=== PATIENT | male | born 1985 | race Caucasian/White ===

== ENCOUNTER 2023-07-06 16:06 | Emergency (ER) | payer OTHER, SELFPAY ==
--- NOTE | 2023-07-06 16:15 | PC.NURSE ---
THIS RN WENT OUT TO GET PT TO BRING BACK TO TRIAGE ROOM TWICE AND PT STILL IN BATHROOM. ([id number])
[2023-07-06 16:22] VITALS: BP 138/107; PULSE 84; RESP 20; TEMP 36.5; O2SAT 98; BMI 26.2
--- NOTE | 2023-07-06 16:31 | CT_ITS ---
The [address] [address] Patient Name: CRISTIN JAUREGUI MRN: [id number] date: 1985 Sex: M Assigned Patient Location: ER Current Patient Location: ER Accession/Order Number: [id number] Exam Date: 07/06/2023 17:20 Report Date: 07/06/2023 18:18 At the request of: POONAM GROSS Procedure: CT abdomen pelvis wo con EXAMINATION: CT abdomen pelvis wo con, 07/06/2023 2:20 PM PST HISTORY: Kidney stone, right flank pain COMPARISON: None. TECHNIQUE: CT scan of the abdomen and pelvis was performed without IV contrast. CT dose reduction technique was used, including Automated Exposure Control. FINDINGS: Lung: No significant finding. Liver: No significant finding. Gallbladder: No significant finding. Spleen: No significant finding. Pancreas: No significant finding. Adrenal glands: No significant finding. Kidneys, ureters and bladder: 2 mm right distal ureter/UVJ calculus with mild right hydroureteronephrosis. Bladder is decompressed with circumferential wall thickening. Bowel: No evidence of bowel obstruction. Tiny hiatal hernia. Colonic diverticulosis without diverticulitis. Normal appendix. Peritoneum/retroperitoneum: No significant finding. Lymph nodes: No significant finding. Vessels: No significant finding. Body wall: No significant finding. Reproductive: No significant finding. Bones: No significant finding. CT/CT abdomen pelvis wo con IMPRESSION: 2 mm right UVJ calculus with mild right hydroureteronephrosis. Electronically authenticated by: WILFREDO CHEN Date: 07/06/2023 18:18
--- NOTE | 2023-07-06 16:35 | ED.ABDPAIN1 ---
HPI - Abdominal Pain General Chief Complaint: Abdominal Pain Stated Complaint: right side pain, unable to go to bathroom Time Seen by Provider: 07/06/23 16:28 Source: patient Mode of arrival: walk-in Limitations: no limitations History of Present Illness HPI narrative: Patient is a 38-year-old male who presents to the emergency department for right flank pain that began several hours ago. Patient states he passed a kidney stone 3 years ago similarly. He believes it was on the same side. He reports pain in the right low back radiating into the right lower quadrant of the abdomen. He has had no fevers. He reports nausea but no vomiting. No medications taken prior to arrival. He has had decreased urination since the pain began. Related Data Home Medications Medication Instructions Recorded Confirmed No Known Home Medications 07/06/23 07/06/23 Previous Rx's Medication Instructions Recorded ciprofloxacin HCl 500 mg tablet 500 mg PO BID #6 tabs 07/06/23 (Cipro) ketorolac 10 mg tablet 10 mg PO TID PRN pain #10 tabs 07/06/23 ondansetron 4 mg disintegrating 4 mg PO Q6H PRN nausea and 07/06/23 tablet vomiting #12 tabs oxycodone-acetaminophen 5 mg-325 1 tab PO Q6H PRN pain 3 days #12 07/06/23 mg tablet (Percocet) tabs tamsulosin 0.4 mg capsule (Flomax) 0.4 mg PO DAILY #7 caps 07/06/23 Allergies Allergy/AdvReac Type Severity Reaction Status Date / Time No Known Drug Allergies Allergy Verified 07/06/23 16:24 Review of Systems ROS Constitutional Denies: fever or chills Ears, nose, mouth, and throat Denies: throat pain or nasal congestion Cardiovascular Denies: chest pain Respiratory Denies: shortness of breath Gastrointestinal Reports: abdominal pain and nausea; Denies: vomiting or diarrhea Genitourinary Reports: decreased urine ouput; Denies: painful urination Musculoskeletal Reports: back pain; Denies: neck pain Integumentary/Breast Denies: rash Neurological Denies: headache Endocrine Denies: excessive urination Exam Narrative Exam Narrative: Gen.: Awake, alert, in no distress Head: Normocephalic, atraumatic ENT: Moist mucous membranes Respiratory: No respiratory distress Gastrointestinal: Abdomen is soft, nondistended and tender to palpation in the right lower quadrant around to the right flank with tenderness of the right low back Extremities: Moves extremities equally Psych: Normal mood and affect Neuro: No focal neuro deficit Skin: Warm, dry, intact Constitutional Vital Signs, click to edit/add: Last Vital Signs Temp 97.7 F 07/06/23 16:22 Pulse 71 07/06/23 18:45 Resp 18 07/06/23 18:45 BP 122/88 07/06/23 18:45 Pulse Ox 99 07/06/23 18:45 O2 Del Method Room Air 07/06/23 18:45 Course Vital Signs Vital signs: Vital Signs Temperature 97.7 F 07/06/23 16:22 Pulse Rate 84 07/06/23 16:22 Respiratory Rate 20 07/06/23 16:22 Blood Pressure 138/107 H 07/06/23 16:22 Pulse Oximetry 98 07/06/23 16:22 Temperature 97.7 F 07/06/23 16:22 Pulse Rate 71 07/06/23 18:45 Respiratory Rate 18 07/06/23 18:45 Blood Pressure 122/88 07/06/23 18:45 Pulse Oximetry 99 07/06/23 18:45 Oxygen Delivery Method Room Air 07/06/23 18:45 MDM - Abdominal Pain MDM Narrative Medical decision making narrative: Patient was medicated with IV fluids, Dilaudid, Toradol, Zofran with improvement. He is resting comfortably on reevaluation. Lab studies with normal white blood cell count and normal creatinine. Lactic acid was mildly elevated and he was given IV fluids. Urine specimen with no evidence of UTI. CT of the abdomen and pelvis shows patient has a 2 mm stone in the right distal ureter. He was remedicated with additional 2 mg of morphine as he stated his pain was starting to come back, although his abdomen is soft and benign and he has normal vital signs at discharge. He is started on a short course of Cipro, Flomax, Zofran, Toradol, Percocet. Follow-up with PCP and return to the ER if symptoms change or worsen. Medical Records Attestation: I reviewed the patient's medical records. Lab Data Attestation: I reviewed the patient's lab results. Labs: Lab Results 07/06/23 07/06/23 07/06/23 Range/Units 16:27 16:35 18:41 WBC 9.8 (4.0-11.0) 10^3/uL RBC 5.05 (4.70-6.10) 10^6/uL Hgb 15.1 (14.0-18.0) g/dL Hct 45.3 (42.0-54.0) % MCV 89.7 (80.0-94.0) fL MCH 29.9 (25.9-34.0) pg MCHC 33.3 (29.9-35.2) g/dL RDW 12.6 (11.0-15.0) % Plt Count 272 (150-450) 10^3/uL MPV 10.8 (9.5-13.5) fL Neut % (Auto) 63.6 (43.0-75.0) % Lymph % (Auto) 27.2 (20.5-60.0) % [place] % (Auto) 7.3 (1.7-12.0) % Eos % (Auto) 1.0 (0.9-7.0) % Baso % (Auto) 0.5 (0.2-2.0) % Neut # (Auto) 6.2 (1.4-6.5) 10^3/uL Lymph # (Auto) 2.7 (1.2-3.8) 10^3/uL [place] # (Auto) 0.7 (0.3-0.8) 10^3/uL Eos # (Auto) 0.1 (0.0-0.7) 10^3/uL Baso # (Auto) 0.1 (0.0-0.1) 10^3/uL Abs Immat Gran (auto) 0.04 H (0.00-0.03) 10^3/uL Imm/Tot Granulo (auto) 0.4 (0.0-0.5) % Sodium 138 (136-145) mmol/L Potassium 3.3 L (3.5-5.1) mmol/L Chloride 102 (98-107) mmol/L Carbon Dioxide 25.4 (21.0-32.0) mmol/L Anion Gap 13.9 BUN 14.0 (7.0-18.0) mg/dL Creatinine 1.09 (0.70-1.30) mg/dL Est GFR ( Amer) >60 (>=60) Est GFR (Non-Af Amer) >60 (>=60) BUN/Creatinine Ratio 12.8 Glucose 111 H (74-106) mg/dL Lactate 2.4 H* (0.4-2.0) mmol/L Calcium 10.1 (8.5-10.1) mg/dL Total Bilirubin 0.5 (0.2-1.0) mg/dL AST 27 (15-37) U/L ALT 40 (16-63) U/L Alkaline Phosphatase 107 (46-116) U/L Total Protein 8.1 (6.4-8.2) g/dL Albumin 4.2 (3.4-5.0) g/dL Globulin 3.9 g/dL Albumin/Globulin Ratio 1.1 Lipase 29.0 (16.0-77.0) U/L Urine Color Yellow (YELLOW) Urine Clarity Clear (CLEAR) Urine pH 5.5 (5.0-9.0) Ur Specific [place] >=1.030 A (1.005-1.025) Urine Protein Negative (NEG/TRACE) mg/dL Urine Glucose (UA) Negative (NEGATIVE) mg/dL Urine Ketones Trace A (NEGATIVE) mg/dL Urine Occult Blood Negative (NEGATIVE) Urine Nitrite Negative (NEGATIVE) Urine Bilirubin Negative (NEGATIVE) Urine Urobilinogen 0.2 (0.2-1.0) EU/dL Ur Leukocyte Esterase Negative (NEGATIVE) Imaging Data CT scan - abdomen: Attestation: I have reviewed the pertinent imaging results. Radiologist's impression: Procedure: CT abdomen pelvis wo [facility] EXAMINATION: CT abdomen pelvis wo [facility], 07/06/2023 2:20 PM PST HISTORY: Kidney stone, right flank pain COMPARISON: None. TECHNIQUE: CT scan of the abdomen and pelvis was performed without IV contrast. CT dose reduction technique was used, including Automated Exposure Control. FINDINGS: Lung: No significant finding. Liver: No significant finding. Gallbladder: No significant finding. Spleen: No significant finding. Pancreas: No significant finding. Adrenal glands: No significant finding. Kidneys, ureters and bladder: 2 mm right distal ureter/UVJ calculus with mild right hydroureteronephrosis. Bladder is decompressed with circumferential wall thickening. Bowel: No evidence of bowel obstruction. Tiny hiatal hernia. Colonic diverticulosis without diverticulitis. Normal appendix. Peritoneum/retroperitoneum: No significant finding. Lymph nodes: No significant finding. Vessels: No significant finding. Body wall: No significant finding. Reproductive: No significant finding. Bones: No significant finding. IMPRESSION: 2 mm right UVJ calculus with mild right hydroureteronephrosis. Electronically authenticated by: WILFREDO CHEN Date: 07/06/2023 18:18 Discharge Plan Discharge Chief Complaint: Abdominal Pain Clinical Impression: Right distal ureteral calculus, Abdominal pain Patient Disposition: Home, Self-Care Time of Disposition Decision: 19:31 Condition: Good Prescriptions / Home Meds: New ciprofloxacin HCl [Cipro] 500 mg tablet 500 mg PO BID Qty: 6 0RF tamsulosin [Flomax] 0.4 mg capsule 0.4 mg PO DAILY Qty: 7 0RF ketorolac 10 mg tablet 10 mg PO TID PRN (Reason: pain) Qty: 10 0RF ondansetron 4 mg tablet,disintegrating 4 mg PO Q6H PRN (Reason: nausea and vomiting) Qty: 12 0RF oxycodone-acetaminophen [Percocet] 5-325 mg tablet 1 tab PO Q6H PRN (Reason: pain) 3 Days Qty: 12 0RF Rx Instructions: DX: N20.0 No Action No Known Home Medications Instructions: Acute Abdominal Pain (ED), Ureteral Stones (ED) Stand Alone Forms: Portal Instructions Referrals: Wally Barr MD [Primary Care Provider] - 1 week
[2023-07-06] MEDS: 0.9 % SODIUM CHLORIDE 1,000 ML 999 ML IV (16:39)
[2023-07-06] MEDS: HYDROMORPHONE HCL 1 MG/ML CARTRIDGE IVP (16:39)
[2023-07-06] MEDS: ONDANSETRON PF 4 MG/2 ML VIAL IV (16:39)
[2023-07-06] MEDS: KETOROLAC TROMETHAMINE 30 MG/ML VIAL IVP (16:39)
[2023-07-06 16:46] LABS: Basophils Absolute Auto 0.1 10^3/uL (0.0-0.1); Basophils Percent Auto 0.5 % (0.2-2.0); Eosinophils Absolute Auto 0.1 10^3/uL (0.0-0.7); Hematocrit 45.3 % (42.0-54.0); Hemoglobin 15.1 g/dL (14.0-18.0); Immature Granulocytes Abs Auto 0.04 10^3/uL (0.00-0.03); Immature Granulocytes Pct Auto 0.4 % (0.0-0.5); Lymphocytes Absolute Auto 2.7 10^3/uL (1.2-3.8); Lymphocytes Percent Auto 27.2 % (20.5-60.0); Mean Corpuscular HGB Conc 33.3 g/dL (29.9-35.2); Mean Corpuscular Hemoglobin 29.9 pg (25.9-34.0); Mean Corpuscular Volume 89.7 fL (80.0-94.0); Mean Platelet Volume 10.8 fL (9.5-13.5); Monocytes Absolute Auto 0.7 10^3/uL (0.3-0.8); Monocytes Percent Auto 7.3 % (1.7-12.0); Neutrophils Absolute Auto 6.2 10^3/uL (1.4-6.5); Neutrophils Percent Auto 63.6 % (43.0-75.0); Platelet Count 272 10^3/uL (150-450); Red Blood Count 5.05 10^6/uL (4.70-6.10); Red Cell Distribution Width 12.6 % (11.0-15.0); White Blood Count 9.8 10^3/uL (4.0-11.0)
[2023-07-06 16:47] VITALS: O2SAT 97
[2023-07-06 17:00] LABS: Alanine Aminotransferase 40 U/L (16-63); Albumin Globulin Ratio 1.1; Albumin Level 4.2 g/dL (3.4-5.0); Alkaline Phosphatase 107 U/L (46-116); Anion Gap 13.9; Aspartate Amino Transferase 27 U/L (15-37); BUN Creatinine Ratio 12.8; Bilirubin Total 0.5 mg/dL (0.2-1.0); Calcium 10.1 mg/dL (8.5-10.1); Carbon Dioxide 25.4 mmol/L (21.0-32.0); Chloride 102 mmol/L (98-107); Estimated GFR (African America >60 (>=60); Estimated GFR (Non-African Ame >60 (>=60); Globulin 3.9 g/dL; Glucose 111 mg/dL (74-106); Potassium 3.3 mmol/L (3.5-5.1); Sodium 138 mmol/L (136-145); Total Protein 8.1 g/dL (6.4-8.2)
[2023-07-06 17:05] LABS: Lactate/Lactic Acid 2.4 mmol/L (0.4-2.0)
[2023-07-06 17:16] VITALS: BP 150/88; PULSE 71; RESP 18; O2SAT 98
[2023-07-06 18:45] VITALS: BP 122/88; PULSE 71; RESP 18; O2SAT 99
[2023-07-06 19:19] LABS: Bilirubin Urine NEGATIVE (NEGATIVE); Blood Urine NEGATIVE (NEGATIVE); Clarity Urine CLEAR (CLEAR); Color Urine YELLOW (YELLOW); Glucose Urine UA NEGATIVE (NEGATIVE); Ketones Urine TRACE mg/dL (NEGATIVE); Leukocyte Esterase Urine NEGATIVE (NEGATIVE); Nitrite Urine NEGATIVE (NEGATIVE); Protein Urine NEGATIVE (NEG/TRACE); Specific Gravity Urine >=1.030 (1.005-1.025); Urobilinogen Urine 0.2 EU/dL (0.2-1.0); pH Urine 5.5 (5.0-9.0)
[2023-07-06 19:23] LABS: Urine Microscopic Indicated NO
[2023-07-06] MEDS: TAMSULOSIN HCL 0.4 MG CAPSULE PO (19:32)
[2023-07-06] MEDS: CIPROFLOXACIN HCL 500 MG TABLET PO (19:32)
[2023-07-06] MEDS: MORPHINE SULFATE 2 MG/ML SYRINGE IV (19:32)
[2023-07-06 19:35] VITALS: BP 143/97; PULSE 77; O2SAT 98
[2023-07-06] MEDS: ONDANSETRON 4 MG RAPDIS TABLET SL (20:11)
[2023-07-06] MEDS: OXYCODONE HCL/ACETAMINOPHEN 5MG/325MG 2 TAB PO (20:11)
[2023-07-06 20:12] VITALS: BP 131/84; PULSE 79; O2SAT 96
== END 2023-07-06 20:17 | disposition home or self-care (01) ==
PROVIDERS: Physician Assistant; Emergency Provider Emergency Medicine; PCP Family Medicine
DX: N13.2 Hydronephrosis with renal and ureteral calculous obstruction (principal); Z87.442 Personal history of urinary calculi; R10.9 Unspecified abdominal pain
CPT/HCPCS: 36415; 74176; 80053; 81003; 83605; 83690; 85025; 96374; 96375; 99285; J1170

== ENCOUNTER 2024-03-19 18:49 | Emergency (ER) | payer OTHER, SELFPAY ==
[2024-03-19 18:56] VITALS: BP 151/97; PULSE 84; TEMP 37.1; O2SAT 97; BMI 26.2
--- OUTSIDE RECORDS SUMMARY | 2024-03-19 18:57 | XMS_ITS | CCD ---
Author Organization 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 Name Role Phone DR MIKE DICKERSON Primary Care Unavailable DR KIM SPENCER Consulting Unavailable SHAIKH Nic VENCES Attending Unavailable SHAIKH Nic VENCES Admitting Unavailable SHAIKH Nic VENCES Consulting Unavailable Twan Jeffers Unavailable MD Twan Jeffers Attending Provider MD Mike Dickerson Primary Care Provider [phone] Twan Jeffers Admitting Unavailable Twan Jeffers Attending Unavailable Mike Dickerson Primary Care Unavailable Medications Current Medications Medication Drug Class(es) Dates Sig (Normalized) Sig (Original) acetaminophen 325 mg / oxyCODONE hydrochloride 5 mg oral tablet (4 sources) Opioid Agonist Start: 10-03-2022 take 1 tablet by mouth three times daily Oxycodone-Acetami nophen Active 1 TAB PO Three times daily October 03, 2022 12:00am Percocet Active baclofen 10 mg oral tablet (4 sources) gamma-Aminobutyric Acid-ergic Agonist Start: 10-03-2022 take 10 mg by mouth three times daily Baclofen Active 10 MG PO Three times daily October 03, 2022 12:00am Baclofen Active ibuprofen 200 mg oral capsule (4 sources) Nonsteroidal Anti-inflammatory Drug Start: 04-06-2019 take 1 tablet by mouth three times daily Ibuprofen Active 1 TAB PO Three times daily April 06, 2019 12:00am take 1 tablet by nikko th three times daily at mealtime as needed Ibuprofen 200 MG 1 tablet with food or milk as needed Orally Three times a day Not-Taking Problems Problem Classification Problem Date Documented Date Episodic/Chronic Other nervous system disorders (3 sources) Chronic pain; Translations: [Other chronic pain] Chronic Other nervous system disorders (3 sources) Other chronic pain Chronic Other nervous system disorders (1 source) Other chronic pain; Translations: [Other chronic pain] Onset: 10-03-2022 Chronic Spondylosis; intervertebral disc disorders; other back problems (19 sources) Other intervertebral disc degeneration, lumbosacral region; Translations: [Other intervertebral disc degeneration, lumbar region] Onset: 09-14-2022 Chronic Spondylosis; intervertebral disc disorders; other back problems (12 sources) Other specified dorsopathies, lumbar region; Translations: [Spinal stenosis, lumbosacral region] Onset: 09-11-2022 Episodic Results Test Name Value Interpretation Reference Range Facil ity MRI LSPINE WO CONon 09-13-19 MRI LSPINE WO CON EXAMINATION: MRI LSPINE WO CON HISTORY: Disorder of lumbar spine ; acute lumbar and right leg pain COMPARISON: MRI L-spine 01/02/2019 TECHNIQUE: A variety of imaging planes and parameters were utilized for visualization of suspected pathology. FINDINGS: For the purposes of numbering, sagittal T2 image # 8 extends from the T11 vertebral body superiorly to the S3 level inferiorly. PARASPINAL AREA: Normal with no visible mass. BONES: No fracture, pars defect, or osseous lesion. CORD/CAUDA EQUINA: Normal caliber, contour, and signal intensity. DISC LEVELS: 12-L1: No significant disc/facet abnormality, spinal stenosis, or foraminal stenosis. L1-L2: No significant disc/facet abnormality, spinal stenosis, or foraminal stenosis. L2-L3: No significant disc/facet abnormality, spinal stenosis, or foraminal stenosis. L3-L4: No significant disc/facet abnormality, spinal stenosis, or foraminal stenosis. L4-L5: Moderate central canal and mild bilateral foramen narrowing. Mild diffuse disc bulging with small posterior central protrusion and annular tear. No disc height reduction. No significant degenerative facet arthropathy. L5-S1: Moderate central canal and right foramen narrowing. Moderate diffuse disc bulging with posterior central small protrusion with annular tear. No disc height reduction. Suspect impingement of the descending S1 nerve roots bilaterally. Mild degenerative facet arthropathy bilaterally. IMPRESSION: 1. L4-L5 and L5-S1 degenerative disc disease resulting in moderate central canal at both levels and moderate right foramen narrowing at L5-S1. Electronically authenticated by: KIM SPENCER Date: 2022-09-12 08:53 Normal [facility] XR FOREIGN BODY EYEon 2022 XR FOREIGN BODY EYE EXAMINATION: XR FOREIGN BODY EYE HISTORY: Foreign body in eye COMPARISON: No relevant comparison available. FINDINGS: ORBITS: Negative for a metallic foreign body. OTHER: Negative. IMPRESSION: 1. No metallic foreign body within the orbits. Electronically authenticated by: KIM SPENCER Date: 2022-09-11 13:38 Normal [facility] Vital Signs Date Time Vital Sign Value Performing Clinician Facility 10-15-2022 17:30-0400 Body height 170.18 cm Twan Jeffers Other [email or web address] Other 10-15-2022 17:30-0400 Body mass index (BMI) [Ratio] 26.81 kg/m2 Twan Kwonky Other [email or web address] Other 10-15-2022 17:30-0400 Body weight 77.66 kg Twan Kwonky Other [email or web address] Other 10-15-2022 17:30-0400 Diastolic blood pressure 70 mm[Hg] Twan Aury Other [email or web address] Other 10-15-2022 17:30-0400 SaO2% (BldA) [Mass fraction] 98 % Twan Kwonky Other [email or web address] Other 10-15-2022 17:30-0400 Systolic blood pressure 130 mm[Hg] Twan Aury Other [email or web address] Other 10-03-2022 11:30-0400 Diastolic blood pressure 86 mm[Hg] MD Mike Dickerson Work Phone: [facility] 10-03-2022 11:30-0400 Heart rate 65 /min MD Mike Dickerson Work Phone: [facility] 10-03-2022 11:30-0400 Respiratory rate 16 /min MD Mike Dickerson Work Phone: [facility] 10-03-2022 11:30-0400 SaO2% (BldA) [Mass fraction] 96 % MD Mike Dickerson Work Phone: [facility] 10-03-2022 11:30-0400 Systolic blood pressure 116 mm[Hg] MD Mike Dickerson Work Phone: [facility] 10-03-2022 10:53-0400 Inhaled oxygen flow rate 3 L/min MD Mike Dickerson Work Phone: [facility] 10-03-2022 09:48-0400 Body height 170.18 cm MD Mike Dickerson Work Phone: [facility] 10-03-2022 09:48-0400 Body weight 78.01 kg MD Mike Dickerson Work Phone: [facility] 09-19-2022 17:15-0400 Body height 170.18 cm Twan Jeffers Other [email or web address] Other 09-19-2022 17:15-0400 Body mass index (BMI) [Ratio] 26.97 kg/m2 Twan Jeffers Other [email or web address] Other 09-19-2022 17:15-0400 Body weight 78.11 kg Twan Jeffers Other [email or web address] Other 09-19-2022 17:15-0400 Diastolic blood pressure 82 mm[Hg] Twan Jeffers Other [email or web address] Other 09-19-2022 17:15-0400 SaO2% (BldA) [Mass fraction] 98 % Twan Jeffers Other [email or web address] Other 09-19-2022 17:15-0400 Systolic blood pressure 134 mm[Hg] Twan Jeffers Other [email or web address] Other 09-10-2022 15:45-0500 Body height 170.18 cm Twan Jeffers Other [email or web address] Other 09-10-2022 15:45-0500 Body mass index (BMI) [Ratio] 26.43 kg/m2 Twan Jeffers Other [email or web address] Other 09-10-2022 15:45-0500 Body weight 76.57 kg Twan Jeffers Other [facility] Other 09-10-2022 15:45-0500 Diastolic blood pressure 84 mm[Hg] Twan Jeffers Other [email or web address] Other 09-10-2022 15:45-0500 SaO2% (BldA) [Mass fraction] 99 % Twan Jeffers Other [email or web address] Other 09-10-2022 15:45-0500 Systolic blood pressure 122 mm[Hg] Twan Jeffers Other [email or web address] Other Encounters Encounter Date Encounter Type Care Provider Facility Start: 10-15-2022 End: 10-15-2022 ambulatory Twan Jeffers Other [email or web address] Other Start: 10-15-2022 Office outpatient vi sit 15 minutes Twan Jeffers [facility] Start: 10-03-2022 End: 10-03-2022 ambulatory Twan Ady Jeffers Facility:[facility] Start: 10-03-2022 End: 10-03-2022 Admission to same day surgery center MD Mike Dickerson Work Phone: [facility] Work Phone: Start: 10-03-2022 End: 10-03-2022 ambulatory MD Mike Dickerson Work Phone: [facility] Work Phone: Start: 09-19-2022 End: 09-19-2022 ambulatory Twan Aury Other [email or web address] Other Start: 09-19-2022 Office outpatient vi sit 25 minutes Twan Aury [facility] Start: 09-11-2022 End: 09-12-[address] MIKE DICKERSON Facility:[facility] Start: 09-10-2022 End: 09-10-2022 ambulatory Wtan Aury Other [email or web address] Other Start: 09-10-2022 Office outpatient vi sit 25 minutes Twan Aury [facility] Procedures Date Procedure Procedure Detail Performing Clinician Start: 10-03-2022 Injection of spinal epidural space MD Mike Dickerson Work Phone: Plan of Treatment Date Care Activity Detail Author Start: 10-03-2022 [facility] Patient Education Aury Non Diagnostic Blo ck [facility] Work Phone: Patient referral [facility] Work Phone: Payers Date Payer Category Payer Self-pay [id number] 1985 Unknown [id number] 1959 Unknown [id number] Unknown [id number] Social History Date Type Detail Facility Unknown if ever smoked [email or web address] Other Sex Assigned At Sex Assigned At Bir th [email or web address] Other Start: 10-03-2022 Tobacco smoking status NHIS Never smoked tobacco (finding) [facility] Start: 1985 Sex Assigned At Male [facility] Goals Date Patient Goal Desired Activity /State Evaluation note 10-15-2022 Note Date & Type Note Facility 10-15-2022 Evaluation note Encounter Date Diagnosis Assessment Notes Oct, Lumbar radiculopathy (ICD-10 - M54.16) 37 year old male here for follow up status post right L4 and L5 transforaminal epidural steroid injection under fluoroscopic guidance. Patient reports 80-90% relief of his right lower extremity pain following the procedure. He continues to complain of intermittent low back pain, denying radicular symptoms. Overall, he appears to be doing well. I recommend he increase his activities as tolerated. He is counseled against any excessive bending, lifting or twisting. He is advised to call the office if his pain returns. Oct, Lumbar degenerative disc disease (ICD-10 - M51.36) Continue with current treatment plan Oct, Sacroiliitis (ICD-10 - M46.1) If the pain persists, we can consider proceeding with a sacroiliac joint injection under fluoroscopic guidance in the future, if applicable Oct, Chronic pain (ICD-10 - G89.29) Follow up as needed. [email or web address] Other Procedure note 10-03-2022 Note Date & Type Note Facility 10-03-2022 Procedure note [facility] Evaluation note 09-19-2022 Note Date & Type Note Facility 09-19-2022 Evaluation note Encounter Date Diagnosis Assessment Notes Sep, Lumbar radiculopathy (ICD-10 - M54.16) 37 year old male here for follow up to discuss chronic pain. He voices complaints of low back pain with intermittent radiation down the posterior aspect of the right lower extremity to the foot. He notes on occasion pain can radiate down left lower extremity. He feels pain is negatively impacting his daily activities. I independently reviewed recent imaging of the lumbar spine which shows multilevel disc bulges with foraminal narrowing. Anatomy of spine discussed in detail with patient in regards to patients condition. Patient is a candidate for a right L4,5 transforaminal epidural steroid injection under fluoroscopic guidance. Risks and benefits of procedure explained to patient; patient verbalizes understanding. Sep, Lumbar degenerative disc disease (ICD-10 - M51.36) Continue with current treatment plan Sep, Sacroiliitis (ICD-10 - M46.1) In the future if the pain persists, we can consider proceeding with a sacroiliac joint injection under fluoroscopic guidance. Sep, Chronic pain (ICD-10 - G89.29) Follow up after procedure [email or web address] Other Evaluation note 09-10-2022 Note Date & Type Note Facility 09-10-2022 Evaluation note Encounter Date Diagnosis Assessment Notes Sep, Lumbar radiculopathy (ICD-10 - M54.16) 37 y/o male here for follow up. He was last seen over 2 years ago. He voices complaints of low back pain with radiation down posterior aspect of the right lower extremity to the heel. He states his pain started 6 days ago. Anatomy of spine as well as different treatment options were discussed in detail with patient in regards to patients condition. I would like to review updated imaging prior to scheduling a procedure as he states he is scheduled for an MRI tomorrow. If his pain persists or worsens, we can consider repeating the transforaminal epidural steroid injection as this previously provided him with significant relief in the past. Sep, Lumbar degenerative disc disease (ICD-10 - M51.36) Proceed with updated imaging of the lumbar spine. Sep, Chronic pain (ICD-10 - G89.29) Consider interventional options after MRI [email or web address] Other Evaluation note Note Date & Type Note Facility Evaluation note No assessment information availa [facility] Work Phone: Summary Purpose Family History Relationship Condition Age at Onset Recorded Date/T warner grandparent Status post three ve ssel coronary artery bypass Unknown Not Specified Chronic obstructive pulmonary disease Un known Advance Directives Advance Directive Response Recorded Date/ Time Advance Directives No March 4:43pm Chief Complaint and Reason for Visit Chief Complaint pain Additional Source Comments (unrecognized sect ion and content) No Status Records FoundNo Status Records Found INFORMATION SOURCE (unrecogn ized section and content) DATE CREATED AUTHOR 09/15/2022 [facility] DATE CREATED AUTHOR AUTHOR'S ORGANIZ ATION 10/11/2022 [facility] REASON FOR VISIT (unrecogniz ed section and content) (LAST SEEN 2019) INCREASE BA CK PAINREVIEW IMAGINGFOLLOW UP AFTER RIGHT LTR Care Teams (unrecognized sec tion and content) Team Status: Active Member Role Status Dates Mike Dickerson MD Primary Care Provider Active Team Status: Inactive Member Role Status Dates Twan Jeffers MD Attending Provider Active Mike Dickerson MD Primary Care Provider Active FOR RECORDS PERTAINING TO PATIENTS WHO ARE OR HAVE BEEN ENROLLED IN A CHEMICAL DEPENDENCY/SUBSTANCEABUSE PROGRAM, SOME INFORMATION MAY BE OMITTED. This clinical summary was aggregated from multiple sources. Caution should be exercised in using it in the provision of clinical care. This summary normalizes information from multiple sources, and as a consequence, information in this document may materially change the coding, format and clinical context of patient data. In addition, data may be omitted in some cases. CLINICAL DECISIONS SHOULD BE BASED ON THE PRIMARY CLINICAL RECORDS. [facility] [employer] provides no warranty or guarantee of the accuracy or completeness of information in this document.
--- NOTE | 2024-03-19 19:03 | ECG_ITS ---
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
--- NOTE | 2024-03-19 19:04 | CT_ITS ---
The [address] [address] Patient Name: CRISTIN JAUREGUI MRN: [id number] date: 1985 Sex: M Assigned Patient Location: ER Current Patient Location: ED.MAIN Accession/Order Number: [id number] Exam Date: 03/19/2024 19:15 Report Date: 03/19/2024 19:31 At the request of: BLANCHE JONES Procedure: CT head/brain wo con EXAMINATION: CT head/brain wo con HISTORY: right uppwer extremity weakness right arm numbness and tingling. COMPARISON: None. TECHNIQUE: Axial CT images through the head without contrast. Dose reduction techniques were achieved by using: automated exposure control and/or adjustment of mA and /or kV according to patient size and/or use of iterative reconstruction technique. FINDINGS: The ventricles and sulci are within normal limits in size and configuration for age. There is no evidence for acute intracranial hemorrhage. There are no foci of abnormal parenchymal attenuation. There is no mass effect or midline shift. There are no abnormal extraaxial fluid collections. IMPRESSION: Negative for acute intracranial hemorrhage or acute intracranial process. Electronically authenticated by: JOSH ROMAN Date: 03/19/2024 19:31
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
[2024-03-19 19:13] VITALS: BP 140/87; PULSE 88; O2SAT 97
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
== END 2024-03-19 20:00 | disposition home or self-care (01) ==
PROVIDERS: Emergency Provider Emergency Medicine; PCP Family Medicine
DX: R20.2 Paresthesia of skin (principal)
CPT/HCPCS: 70450; 93005; 99284

== ENCOUNTER 2024-04-28 18:20 | Emergency (ER) | payer OTHER, SELFPAY ==
[2024-04-28 18:23] VITALS: BP 167/100; PULSE 78; TEMP 36.9; O2SAT 98; BMI 26.6
--- OUTSIDE RECORDS SUMMARY | 2024-04-28 18:30 | XMS_ITS | CCD ---
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 Name Role Phone DR MIKE DICKERSON Primary Care Unavailable DR KIM SPENCER Consulting Unavailable SHAIKH Nic VENCES Attending Unavailable SHAIKH Nic VENCES Admitting Unavailable SHAIKH Nic VENCES Consulting Unavailable Twan Jeffers Unavailable MD Twan Jeffers Attending Provider [phone] MD Mike Dickerson Primary Care Provider Twan Jeffers Admitting Unavailable Twan Jeffers Attending [...] by: KIM SPENCER Date: 2022-09-12 08:53 Normal [facility] XR FOREIGN BODY EYEon 2022 XR FOREIGN BODY EYE EXAMINATION: XR FOREIGN BODY EYE HISTORY: Foreign body in eye COMPARISON: No relevant comparison available. FINDINGS: ORBITS: Negative for a metallic foreign body. OTHER: Negative. IMPRESSION: 1. No metallic foreign body within the orbits. Electronically authenticated by: KIM SPENCER Date: 2022-09-11 13:38 Normal [facility] Vital Signs Date Time Vital Sign Value Performing Clinician Facility 10-15-2022 17:30-0400 Body height 170.18 cm Twan Jeffers Other [facility] Other 10-15-2022 17:30-0400 Body mass index (BMI) [Ratio] 26.81 kg/m2 Twan Kwonky Other [facility] Other 10-15-2022 17:30-0400 Body weight 77.66 kg Twan Kwonky Other [facility] Other 10-15-2022 17:30-0400 Diastolic blood pressure 70 mm[Hg] Twan Aury Other [facility] Other 10-15-2022 17:30-0400 SaO2% (BldA) [Mass fraction] 98 % Twan Kwonky Other [facility] Other 10-15-2022 17:30-0400 Systolic blood pressure 130 mm[Hg] Twan Aury Other [facility] Other 10-03-2022 11:30-0400 Diastolic blood pressure 86 mm[Hg] MD Mike Dickerson Work Phone: [facility] 10-03-2022 11:30-0400 Heart rate 65 /min MD Mike Dickerson Work Phone: [facility] 10-03-2022 11:30-0400 Respiratory rate 16 /min MD Mike Dickerson Work Phone: [facility] 10-03-2022 11:30-0400 SaO2% (BldA) [Mass fraction] 96 % MD Mike Dickerson Work Phone: [facility] 10-03-2022 11:30-0400 Systolic blood pressure 116 mm[Hg] MD Mike Dickerson Work Phone: [facility] 10-03-2022 10:53-0400 Inhaled oxygen flow rate 3 L/min MD Mike Dickerson Work Phone: [facility] 10-03-2022 09:48-0400 Body height 170.18 cm MD Mike Dickerson Work Phone: [facility] 10-03-2022 09:48-0400 Body weight 78.01 kg MD Mike Dickerson Work Phone: [facility] 09-19-2022 17:15-0400 Body height 170.18 cm Twan Jeffers Other [facility] Other 09-19-2022 17:15-0400 Body mass index (BMI) [Ratio] 26.97 kg/m2 Twan Jeffers Other [facility] Other 09-19-2022 17:15-0400 Body weight 78.11 kg Twan Jeffers Other [facility] Other 09-19-2022 17:15-0400 Diastolic blood pressure 82 mm[Hg] Twan Jeffers Other [facility] Other 09-19-2022 17:15-0400 SaO2% (BldA) [Mass fraction] 98 % Twan Jeffers Other [facility] Other 09-19-2022 17:15-0400 Systolic blood pressure 134 mm[Hg] Twan Jeffers Other [facility] Other 09-10-2022 15:45-0500 Body height 170.18 cm Twan Jeffers Other [facility] Other 09-10-2022 15:45-0500 Body mass index (BMI) [Ratio] 26.43 kg/m2 Twan Jeffers Other [facility] Other 09-10-2022 15:45-0500 Body weight 76.57 kg Twan Jeffers Other [facility] Other 09-10-2022 15:45-0500 Diastolic blood pressure 84 mm[Hg] Twan Jeffers Other [facility] Other 09-10-2022 15:45-0500 SaO2% (BldA) [Mass fraction] 99 % Twan Jeffers Other [facility] Other 09-10-2022 15:45-0500 Systolic blood pressure 122 mm[Hg] Twan Jeffers Other [facility] Other Encounters Encounter Date Encounter Type Care Provider Facility Start: 10-15-2022 End: 10-15-2022 ambulatory Twan Jeffers Other [facility] Other Start: 10-15-2022 Office outpatient vi sit 15 minutes Twan Jeffers [facility] Start: 10-03-2022 End: 10-03-2022 ambulatory Twan Ady Jeffers Facility:[facility] Start: 10-03-2022 End: 10-03-2022 Admission to same day surgery center MD Mike Dickerson Work Phone: [facility] Work Phone: Start: 10-03-2022 End: 10-03-2022 ambulatory MD Mike Dickerson Work Phone: [facility] Work Phone: Start: 09-19-2022 End: 09-19-2022 ambulatory Twan Aury Other [facility] Other Start: 09-19-2022 Office outpatient vi sit 25 minutes Twan Aury [facility] Start: 09-11-2022 End: 09-12-[address] MIKE DICKERSON Facility:[facility] Start: 09-10-2022 End: 09-10-2022 ambulatory Twan Aury Other [facility] Other Start: 09-10-2022 Office outpatient vi sit 25 minutes Twan Aury [facility] Procedures Date Procedure Procedure Detail Performing Clinician Start: 10-03-2022 Injection of spinal epidural space MD Mike Dickerson Work Phone: Plan of Treatment Date Care Activity Detail Author Start: 10-03-2022 [facility] Patient Education Aury Non Diagnostic Blo ck [facility] Work Phone: Patient referral [facility] Work Phone: Payers Date Payer Category Payer Self-pay [id number] 1985 Unknown [id number] 1959 Unknown [id number] Unknown [id number] Social History Date Type Detail Facility Unknown if ever smoked [facility] Other Sex Assigned At Sex Assigned At Bir th [facility] Other Start: 10-03-2022 Tobacco smoking status NHIS Never smoked tobacco (finding) [facility] Start: 1985 Sex Assigned At Male F [facility] Goals Date Patient Goal Desired Activity [...] (ICD-10 - G89.29) Follow up as needed. [facility] Other Procedure note 10-03-2022 Note Date & Type Note Facility 10-03-2022 Procedure note [facility] Evaluation note 09-19-2022 Note Date & Type [...] (ICD-10 - G89.29) Follow up after procedure [facility] Other Evaluation note 09-10-2022 Note Date & [...] - G89.29) Consider interventional options after MRI [facility] Other Evaluation note Note Date & Type Note Facility Evaluation note No assessment information availa [facility] Work Phone: Summary Purpose Family [...] and content) DATE CREATED AUTHOR 09/15/2022 [facility] DATE CREATED AUTHOR AUTHOR'S ORGANIZ ATION 10/11/[address] [facility] REASON FOR VISIT (unrecogniz ed section [...] BE BASED ON THE PRIMARY CLINICAL RECORDS. [facility] [employer] provides no warranty or guarantee of the accuracy or completeness of information in this document.
--- NOTE | 2024-04-28 18:41 | ED_ITS ---
HPI HPI - General Adult General Chief complaint: Neck Pain/Injury Stated complaint: NECK PAIN Time Seen by Provider: 04/28/24 18:36 Source: patient Mode of arrival: walk-in Limitations: no limitations History of Present Illness HPI narrative: Patient is a 39-year-old male who presents to the emergency department for evaluation of feeling of a lump in his throat for the last week. He is able to eat and drink without difficulty. He states when he lays flat he gags and has a sensation that there is something in his throat. He went to urgent care just prior to arrival and was referred to the ER because the provider at urgent care felt something abnormal in the anterior neck and wanted the patient to have imaging done. They tested him for strep and it was negative. He has had no fevers. He reports mild congestion from the sinuses. No other vomiting or diarrhea. Related Data Previous Rx's ?Medication ?Instructions ?Recorded amoxicillin 875 mg-potassium 1 tab PO Q12H #20 tabs 04/28/24 clavulanate 125 mg tablet Allergies Allergy/AdvReac Type Severity Reaction Status Date / Time No Known Drug Allergies Allergy Verified 03/19/24 18:54 Opioid HPI Opioid Management Most Recent Opioid Data: Last Pain Scale 4 07/06/23 19:32 07/06/23 Review of Systems ROS Constitutional Denies: fever or chills Ears, nose, mouth, and throat Reports: throat pain; Denies: throat swelling, difficulty swallowing or hoarseness Cardiovascular Denies: chest pain Respiratory Denies: shortness of breath Gastrointestinal Denies: nausea or vomiting Integumentary/Breast Denies: rash or itching Neurological Denies: numbness in extremities or weakness in extremities Hematologic/Lymphatic Denies: easy bruising or easy bleeding PFSH PFSH Social History Little interest or pleasure in doing things: not at all Feeling down, depressed, or hopeless: not at all Exam Narrative Exam Narrative: Gen.: Awake, alert, in no distress Head: Normocephalic, atraumatic ENT: Moist mucous membranes, no palpable deformity or masses of the neck, no palpable lymphadenopathy. Uvula is midline with airway widely open and patent. No trismus or drooling. Clear speech. Bilateral TMs clear Respiratory: No respiratory distress Extremities: Moves extremities equally, no injuries noted Psych: Normal mood and affect Neuro: No focal neuro deficit Skin: Warm, dry, intact Constitutional Vital Signs, click to edit/add: Last Vital Signs Temp 98.4 F 04/28/24 18:23 Pulse 66 04/28/24 19:06 Resp 17 04/28/24 19:06 BP 136/94 H 04/28/24 19:06 Pulse Ox 98 04/28/24 19:06 O2 Del Method Room Air 04/28/24 18:23 Course Vital Signs Vital signs: Vital Signs Temperature 98.4 F 04/28/24 18:23 Pulse Rate 78 04/28/24 18:23 Respiratory Rate 18 04/28/24 18:23 Blood Pressure 167/100 H 04/28/24 18:23 Pulse Oximetry 98 04/28/24 18:23 Oxygen Delivery Method Room Air 04/28/24 18:23 Temperature 98.4 F 04/28/24 18:23 Pulse Rate 66 04/28/24 19:06 Respiratory Rate 17 04/28/24 19:06 Blood Pressure 136/94 H 04/28/24 19:06 Pulse Oximetry 98 04/28/24 19:06 Oxygen Delivery Method Room Air 04/28/24 18:23 Medical Decision Making MDM Narrative Medical decision making narrative: Patient is hemodynamically stable, no difficulty with swallowing or tolerating his own secretions and vital signs are stable. Labs are unremarkable and he was sent for CT of the soft tissue of the neck. This CT is unremarkable in terms of the patient's airway and throat, there is evidence of severe dental disease and multiple periapical abscesses which will be treated with Augmentin for home. He was instructed to follow-up with a dentist. Decadron given in the ER for throat sensation and return to the ER if symptoms change or worsen. Reevaluated by PCP. SHARED APC VISIT, PHYSICIAN ATTESTATION: [id number] I performed a substantive part of the MDM during the patient?s E/M visit. I personally evaluated and examined the patient. I personally made or approved the documented management plan and acknowledge its risk of complications. Medical Records Medical records reviewed: Yes I reviewed the patient's medical records Lab Data Lab results reviewed: Yes I reviewed the patient's lab results Labs: Lab Results 04/28/24 Range/Units 18:50 WBC 9.1 (4.0-11.0) 10^3/uL RBC 4.71 (4.70-6.10) 10^6/uL Hgb 14.0 (14.0-18.0) g/dL Hct 41.4 L (42.0-54.0) % MCV 87.9 (80.0-94.0) fL MCH 29.7 (25.9-34.0) pg MCHC 33.8 (29.9-35.2) g/dL RDW 11.9 (11.0-15.0) % Plt Count 274 (150-450) 10^3/uL MPV 10.7 (9.5-13.5) fL Neut % (Auto) 67.2 (43.0-75.0) % Lymph % (Auto) 20.1 L (20.5-60.0) % [place] % (Auto) 7.8 (1.7-12.0) % Eos % (Auto) 4.0 (0.9-7.0) % Baso % (Auto) 0.5 (0.2-2.0) % Neut # (Auto) 6.1 (1.4-6.5) 10^3/uL Lymph # (Auto) 1.8 (1.2-3.8) 10^3/uL [place] # (Auto) 0.7 (0.3-0.8) 10^3/uL Eos # (Auto) 0.4 (0.0-0.7) 10^3/uL Baso # (Auto) 0.1 (0.0-0.1) 10^3/uL Abs Immat Gran (auto) 0.04 H (0.00-0.03) 10^3/uL Imm/Tot Granulo (auto) 0.4 (0.0-0.5) % Sodium 141 (136-145) mmol/L Potassium 3.9 (3.5-5.1) mmol/L Chloride 103 (98-107) mmol/L Carbon Dioxide 27.8 (21.0-32.0) mmol/L Anion Gap 14.1 BUN 21.0 H (7.0-18.0) mg/dL Creatinine 1.19 (0.70-1.30) mg/dL Est GFR ( Amer) >60 (>=60 mL/min/1.73m^2) Est GFR (Non-Af Amer) >60 (>=60 mL/min/1.73m^2) BUN/Creatinine Ratio 17.6 Glucose 108 H (74-106) mg/dL Calcium 9.4 (8.5-10.1) mg/dL Imaging Data CT neck: Attestation: I have reviewed the pertinent imaging results. Radiologist's impression: ITS Impressions Soft Tissue Neck CT 04/28/24 19:17 IMPRESSION: No abnormal soft tissue mass in the neck. Severe dental disease throughout with several periapical abscesses. Electronically authenticated by: ENOC HANSEN Date: 04/28/2024 20:37 Discharge Plan Discharge Chief Complaint: Neck Pain/Injury Clinical Impression: Dental disease Patient Disposition: Home, Self-Care Time of Disposition Decision: 20:43 Condition: Good Prescriptions / Home Meds: New amoxicillin-pot clavulanate 875-125 mg tablet 1 tab PO Q12H Qty: 20 0RF Print Language: Mosotho Instructions: Dental Abscess (ED) Referrals: Wally Barr MD [Primary Care Provider] - 1 week
[2024-04-28 19:05] LABS: Basophils Absolute Auto 0.1 10^3/uL (0.0-0.1); Basophils Percent Auto 0.5 % (0.2-2.0); Eosinophils Absolute Auto 0.4 10^3/uL (0.0-0.7); Hematocrit 41.4 % (42.0-54.0); Immature Granulocytes Abs Auto 0.04 10^3/uL (0.00-0.03); Immature Granulocytes Pct Auto 0.4 % (0.0-0.5); Lymphocytes Absolute Auto 1.8 10^3/uL (1.2-3.8); Lymphocytes Percent Auto 20.1 % (20.5-60.0); Mean Corpuscular HGB Conc 33.8 g/dL (29.9-35.2); Mean Corpuscular Hemoglobin 29.7 pg (25.9-34.0); Mean Corpuscular Volume 87.9 fL (80.0-94.0); Mean Platelet Volume 10.7 fL (9.5-13.5); Monocytes Absolute Auto 0.7 10^3/uL (0.3-0.8); Monocytes Percent Auto 7.8 % (1.7-12.0); Neutrophils Absolute Auto 6.1 10^3/uL (1.4-6.5); Neutrophils Percent Auto 67.2 % (43.0-75.0); Platelet Count 274 10^3/uL (150-450); Red Blood Count 4.71 10^6/uL (4.70-6.10); Red Cell Distribution Width 11.9 % (11.0-15.0); White Blood Count 9.1 10^3/uL (4.0-11.0)
[2024-04-28 19:06] VITALS: BP 136/94; PULSE 66; O2SAT 98
[2024-04-28 19:10] LABS: Anion Gap 14.1; BUN Creatinine Ratio 17.6; Calcium 9.4 mg/dL (8.5-10.1); Carbon Dioxide 27.8 mmol/L (21.0-32.0); Chloride 103 mmol/L (98-107); Estimated GFR (African America >60 (>=60 mL/min/1.73m^2); Estimated GFR (Non-African Ame >60 (>=60 mL/min/1.73m^2); Glucose 108 mg/dL (74-106); Potassium 3.9 mmol/L (3.5-5.1); Sodium 141 mmol/L (136-145)
--- NOTE | 2024-04-28 19:17 | CT_ITS ---
[address] [address] Patient Name: CRISTIN JAUREGUI MRN: [id number] date: 1985 Sex: M Assigned Patient Location: ER Current Patient Location: .MAIN Accession/Order Number: [id number] Exam Date: 04/28/2024 19:10 Report Date: 04/28/2024 20:37 At the request of: POONAM GROSS Procedure: CT soft tissue neck w con EXAM: CT soft tissue neck w con HISTORY: mass in throat COMPARISON: None. TECHNIQUE: Axial CT scans of the neck were obtained with IV contrast. MPR images were obtained. Dose reduction techniques were achieved by using: automated exposure control and/or adjustment of mA and /or kV according to patient size and/or use of iterative reconstruction technique. FINDINGS: The visualized intracranial contents and the intraorbital contents appear normal. Paranasal sinuses, middle ear cavities and mastoids are clear. The sales correspondence clerk spaces, parotid glands and parapharyngeal spaces appear normal. The nasopharynx, oropharynx and hypopharynx show no abnormal mass. The oral tongue, the floor the mouth and the submandibular glands appear normal. The thyroid gland and the larynx show no abnormal mass. No abnormal fluid collection. No adenopathy. The prevertebral space shows no edema. The visualized upper lungs are clear. Osseous structures are intact. Severe dental disease throughout with several periapical abscesses. CT/CT soft tissue neck w con IMPRESSION: No abnormal soft tissue mass in the neck. Severe dental disease throughout with several periapical abscesses. Electronically authenticated by: ENOC HANSEN Date: 04/28/2024 20:37
[2024-04-28 21:03] VITALS: BP 132/88; PULSE 69; TEMP 37.1; O2SAT 98
[2024-04-28] MEDS: DEXAMETHASONE SOD PHOS 10 MG/ML VIAL IV (21:07)
[2024-04-28] MEDS: AMOXICILLIN/POT CLAV 875-125 MG TABLET 1 TAB PO (21:07)
== END 2024-04-28 21:15 | disposition home or self-care (01) ==
PROVIDERS: Physician Assistant; Emergency Provider Emergency Medicine; PCP Family Medicine
DX: K08.9 Disorder of teeth and supporting structures, unspecified (principal)
CPT/HCPCS: 36415; 70491; 80048; 85025; 96374; 99285; J1100; Q9967